=== PATIENT | female | born 1990 | race American Indian/Alaskan Native ===

== ENCOUNTER 2019-10-15 19:56 | Outpatient (CLI) | payer MEDICAID ==
[2019-10-15] MEDS ORDERED: MAGNESIUM SULFATE 4 GM/100 ML BAG IV ONE (21:23)
[2019-10-15] MEDS ORDERED: ACETAMINOPHEN 325 MG TAB PO PRN (21:24)
[2019-10-15] MEDS ORDERED: MAGNESIUM SULFATE 40GM/1000ML 40 GM/1,000 ML BAG IV SCH (22:00)
[2019-10-15] MEDS: LACTATED RINGERS 1,000 ML IV SCH (23:13)
[2019-10-15] MEDS: BETAMET ACET/BETAMET NA PH 6 MG/ML INJ 5 ML MDV IM SCH (23:42)
[2019-10-16] MEDS: ZOLPIDEM 5 MG TAB PO PRN (01:05)
[2019-10-16 04:06] LABS: Hematocrit 39.8 % (30.3-42.9); Hemoglobin 13.6 gm/dl (10.1-14.3); Mean Corpuscular HGB Conc 34 % (30-34); Mean Corpuscular Volume 95 fl (79-97); Platelet Count 315 K/mm3 (140-440); Red Cell Distribution Width 13.7 % (13.2-15.2)
--- NOTE | 2019-10-16 08:20 | History and Physical Report ---
History of Present Illness Date of examination: 10/16/19 Date of admission: 10/15/19 Chief complaint: Sent from [facility] for severe IUGR with absent end diastolic flow. History of present illness: Pt is a 28 yo at 31.0 weeks EGA who presents with severe IUGR (EFW 1%) and absent end diastolic flow per [facility] ultrasound yesterday. She has received minimal care with [facility] consultant dietitian, most recent visit was 06/25/19. She has a history of x1 for severe IUGR at 29 weeks. Past History Past Medical History: no pertinent history Past Surgical History: section Social history: no significant social history - Obstetrical History Expected Date of Delivery: 12/18/19 Actual Gestation: 31 Week(s) 0 Day(s) : 2 Para: 0 Hx # Term Pregnancies: 0 Number of Pregnancies: 1 Number of Living Children: 1 Medications and Allergies Allergies Allergy/AdvReac Type Severity Reaction Status Date / Time No Known Allergies Allergy Verified 10/15/19 21:30 Home Medications Medication Instructions Recorded Confirmed Last Taken Type No Known Home Medications [No 10/15/19 10/15/19 Unknown History Reported Home Medications] Active Meds: Active Medications Acetaminophen (Tylenol) 650 mg PO Q4H PRN PRN Reason: Pain, Mild (1-3) Betamethasone Acet/Betameth SodPhos (Celestone Soluspan) 12 mg IM Q24H HORACE Stop: 10/16/19 21:19 Last Admin: 10/15/19 23:42 Dose: 12 mg Documented by: Magnesium Sulfate (Magnesium Sulfate 40gm/1000ml) 40 gm in 1,000 mls @ 50 mls/hr IV DIRECT HORACE Last Admin: 10/15/19 23:45 Dose: 2 gm/hr, 50 mls/hr Documented by: Lactated Ringer's (Lactated Ringers) 1,000 mls @ 75 mls/hr IV DIRECT HORACE Last Admin: 10/15/19 23:13 Dose: 75 mls/hr Documented by: Zolpidem Tartrate (Ambien) 5 mg PO QHS PRN PRN Reason: Sleep Last Admin: 10/16/19 01:05 Dose: 5 mg Documented by: Review of Systems All systems: negative Cardiovascular: no chest pain Respiratory: no shortness of breath Gastrointestinal: no abdominal pain Genitourinary: no vaginal bleeding, no vaginal discharge, no leakage of fluid, no dysuria, no contractions - Vital Signs Vital signs: Vital Signs Pulse BP 82 130/80 10/15/19 20:29 10/15/19 20:29 Temp Pulse Resp BP Pulse Ox 98.4 F 113 H 18 123/77 98 10/15/19 20:45 10/16/19 08:12 10/15/19 20:45 10/16/19 07:42 10/16/19 08:12 - Physical Exam Lungs: Positive: Normal air movement Abdomen: Positive: soft Uterus: Positive: enlarged (gravid) - Obstetrical FHR: category 1 Uterine Contraction Pattern: Absent Results Result Diagrams: 10/16/19 02:00 Abnormal lab results 10/16/19 Range/Units 02:00 WBC 12.3 H (4.5-11.0) K/mm3 MCH 33 H (28-32) pg All other labs normal. Assessment and Plan A: Severe IUGR Absent end diastolic flow Scant care Previous c/s x1 P: NICU consult MFM consult MgSO for neuroprotection Betamethasone x2 Repeat Doppler studies and BPP at 1500 Continuous EFM
[2019-10-16] MEDS: LACTATED RINGERS 1,000 ML IV SCH (11:59)
--- NOTE | 2019-10-16 16:31 | Progress Note ---
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 Repeat BPP/doppler MWP Continuous monitoring NICU consult Deliver for Cat 3 tracing Contact oncall physician for concerns Subjective - Subjective Date of service: 10/16/19 Principal diagnosis: IUGR w/abnoraml dopplers Patient reports: movement normal Objective - Vital Signs Vital Signs: Vital Signs - 12hr 10/16/19 10/16/19 10/16/19 04:24 04:29 04:34 Temperature Pulse Rate 94 H 92 H 82 Respiratory Rate Blood Pressure Blood Pressure [Left] O2 Sat by Pulse 100 98 99 Oximetry 10/16/19 10/16/19 10/16/19 04:39 04:44 04:49 Temperature Pulse Rate 84 90 90 Respiratory Rate Blood Pressure Blood Pressure [Left] O2 Sat by Pulse 98 98 98 Oximetry 10/16/19 10/16/19 10/16/19 04:54 04:59 05:04 Temperature Pulse Rate 71 83 78 Respiratory Rate Blood Pressure Blood Pressure [Left] O2 Sat by Pulse 98 98 98 Oximetry 10/16/19 10/16/19 10/16/19 05:09 05:14 05:19 Temperature Pulse Rate 74 73 82 Respiratory Rate Blood Pressure Blood Pressure [Left] O2 Sat by Pulse 98 98 98 Oximetry 10/16/19 10/16/19 10/16/19 05:24 05:25 05:29 Temperature Pulse Rate 88 88 80 Respiratory Rate Blood Pressure 121/72 Blood Pressure [Left] O2 Sat by Pulse 99 99 Oximetry 10/16/19 10/16/19 10/16/19 05:34 05:39 05:43 Temperature Pulse Rate 91 H 86 80 Respiratory Rate Blood Pressure 128/81 Blood Pressure [Left] O2 Sat by Pulse 99 99 Oximetry 10/16/19 10/16/19 10/16/19 05:44 05:49 05:54 Temperature Pulse Rate 86 98 H 89 Respiratory Rate Blood Pressure Blood Pressure [Left] O2 Sat by Pulse 99 99 99 Oximetry 10/16/19 10/16/19 10/16/19 05:59 06:04 06:09 Temperature Pulse Rate 110 H 90 85 Respiratory Rate Blood Pressure Blood Pressure [Left] O2 Sat by Pulse 100 99 99 Oximetry 10/16/19 10/16/19 10/16/19 06:14 06:19 06:24 Temperature Pulse Rate 77 80 73 Respiratory Rate Blood Pressure Blood Pressure [Left] O2 Sat by Pulse 99 98 99 Oximetry 10/16/19 10/16/19 10/16/19 06:29 06:34 06:39 Temperature Pulse Rate 84 80 81 Respiratory Rate Blood Pressure Blood Pressure [Left] O2 Sat by Pulse 98 98 98 Oximetry 10/16/19 10/16/19 10/16/19 06:42 06:44 06:49 Temperature Pulse Rate 81 78 87 Respiratory Rate Blood Pressure 111/57 Blood Pressure [Left] O2 Sat by Pulse 98 97 Oximetry 10/16/19 10/16/19 10/16/19 06:54 06:59 07:04 Temperature Pulse Rate 84 83 88 Respiratory Rate Blood Pressure Blood Pressure [Left] O2 Sat by Pulse 97 97 97 Oximetry 10/16/19 10/16/19 10/16/19 07:20 07:22 07:27 Temperature 97.2 F L Pulse Rate 92 H 93 H 104 H Respiratory 16 Rate Blood Pressure 134/83 Blood Pressure 134/83 [Left] O2 Sat by Pulse 96 99 Oximetry 10/16/19 10/16/19 10/16/19 07:32 07:37 07:42 Temperature Pulse Rate 98 H 103 H 97 H Respiratory Rate Blood Pressure 123/77 Blood Pressure [Left] O2 Sat by Pulse 99 99 98 Oximetry 10/16/19 10/16/19 10/16/19 07:47 07:52 07:57 Temperature Pulse Rate 97 H 98 H 107 H Respiratory Rate Blood Pressure Blood Pressure [Left] O2 Sat by Pulse 99 99 99 Oximetry 10/16/19 10/16/19 10/16/19 08:02 08:07 08:12 Temperature Pulse Rate 104 H 100 H 113 H Respiratory Rate Blood Pressure Blood Pressure [Left] O2 Sat by Pulse 99 99 98 Oximetry 10/16/19 10/16/19 10/16/19 08:17 08:22 08:27 Temperature Pulse Rate 103 H 104 H 102 H Respiratory Rate Blood Pressure Blood Pressure [Left] O2 Sat by Pulse 99 99 98 Oximetry 10/16/19 10/16/19 10/16/19 08:33 08:38 08:45 Temperature Pulse Rate 100 H 99 H 105 H Respiratory Rate Blood Pressure 140/80 Blood Pressure [Left] O2 Sat by Pulse 98 99 Oximetry 10/16/19 10/16/19 10/16/19 14:51 14:56 15:01 Temperature Pulse Rate 82 89 83 Respiratory Rate Blood Pressure 140/82 Blood Pressure [Left] O2 Sat by Pulse 100 100 98 Oximetry 10/16/19 10/16/19 10/16/19 15:06 15:11 15:13 Temperature Pulse Rate 95 H 61 96 H Respiratory Rate Blood Pressure Blood Pressure [Left] O2 Sat by Pulse 98 82 L 100 Oximetry 10/16/19 10/16/19 10/16/19 15:18 15:23 15:28 Temperature Pulse Rate 87 104 H 101 H Respiratory Rate Blood Pressure Blood Pressure [Left] O2 Sat by Pulse 99 99 99 Oximetry 10/16/19 10/16/19 10/16/19 15:33 15:38 15:43 Temperature Pulse Rate 94 H 96 H 94 H Respiratory Rate Blood Pressure Blood Pressure [Left] O2 Sat by Pulse 100 100 100 Oximetry 10/16/19 10/16/19 10/16/19 15:48 15:53 15:58 Temperature Pulse Rate 94 H 89 119 H Respiratory Rate Blood Pressure Blood Pressure [Left] O2 Sat by Pulse 99 98 97 Oximetry 10/16/19 10/16/19 10/16/19 16:03 16:08 16:13 Temperature Pulse Rate 109 H 97 H 98 H Respiratory Rate Blood Pressure Blood Pressure [Left] O2 Sat by Pulse 99 100 99 Oximetry 10/16/19 16:18 Temperature Pulse Rate 95 H Respiratory Rate Blood Pressure Blood Pressure [Left] O2 Sat by Pulse 99 Oximetry - Exam Breasts: deferred Cardiovascular: Regular rate, Normal S1 Lungs: Normal air movement Abdomen: Present: normal appearance - Labs Labs: Abnormal Labs 10/16/19 10/16/19 10/16/19 02:00 09:10 12:50 WBC 12.3 H MCH 33 H Magnesium 5.50 H 5.80 H Laboratory Results - last 24 hr 10/16/19 10/16/19 10/16/19 02:00 09:10 09:10 WBC 12.3 H RBC 4.20 Hgb 13.6 Hct 39.8 MCV 95 MCH 33 H MCHC 34 RDW 13.7 Plt Count 315 Magnesium 5.50 H Blood Type B POSITIVE Antibody Screen Negative 10/16/19 12:50 WBC RBC Hgb Hct MCV MCH MCHC RDW Plt Count Magnesium 5.80 H Blood Type Antibody Screen
--- NOTE | 2019-10-16 18:16 | Ultrasound Report ---
Umbilical arterial Ultrasound Biophysical profile HISTORY: Severe IUGR hx absent end diastolic flow. TECHNIQUE: Grayscale and color Doppler imaging performed. COMPARISON: None FINDINGS: On biophysical profile, the fetus received a score of 2/2 for breathing, movement, tone, an d HILARY. Total score was 8/8. 3 segments of the umbilical cord were evaluated. The average systolic to diastolic ratio within these loops was 3.7 which is within normal limits. Normal waveform identified. Persistent flow. The resist urbano index average was 0.7 which is within normal limits with normal waveform and persistent blood chan w. IMPRESSION: 1. Normal BPP. 2. Normal umbilical arterial evaluation. Signer Name: Rhett Escobar MD Signed: 10/16/2019 6:12 PM Workstation Name: [id number]
[2019-10-17] MEDS: BETAMET ACET/BETAMET NA PH 6 MG/ML INJ 5 ML MDV IM SCH (00:02)
[2019-10-17] MEDS: LACTATED RINGERS 1,000 ML IV SCH (01:43)
--- NOTE | 2019-10-17 09:09 | Progress Note ---
Assessment and Plan A/P IUP 30 weith with IUGR no end diastolic flow s/p bmz and mag seen by [facility] and MFM await recommnedations from high risk on disposition Subjective - Subjective Date of service: 10/17/19 Principal diagnosis: IUGR w/abnoraml dopplers Patient reports: movement normal, no loss of fluid, no vaginal bleeding, no contractions Objective - Vital Signs Vital Signs: Vital Signs - 12hr 10/16/19 10/16/19 10/16/19 21:09 21:14 21:19 Temperature Pulse Rate 89 92 H 93 H Respiratory Rate Blood Pressure O2 Sat by Pulse 100 99 100 Oximetry 10/16/19 10/16/19 10/16/19 21:24 21:29 21:34 Temperature Pulse Rate 86 88 89 Respiratory Rate Blood Pressure O2 Sat by Pulse 99 100 99 Oximetry 10/16/19 10/16/19 10/16/19 21:39 21:42 21:44 Temperature Pulse Rate 92 H 99 H 94 H Respiratory Rate Blood Pressure 133/74 O2 Sat by Pulse 100 100 Oximetry 10/16/19 10/16/19 10/16/19 21:49 21:54 21:59 Temperature Pulse Rate 114 H 118 H 120 H Respiratory Rate Blood Pressure O2 Sat by Pulse 100 100 99 Oximetry 10/16/19 10/16/19 10/16/19 22:20 22:25 22:29 Temperature Pulse Rate 127 H 113 H 156 H Respiratory Rate Blood Pressure O2 Sat by Pulse 98 99 99 Oximetry 10/16/19 10/16/19 10/16/19 22:35 22:40 22:43 Temperature Pulse Rate 129 H 133 H 127 H Respiratory Rate Blood Pressure 155/81 O2 Sat by Pulse 98 98 Oximetry 10/16/19 10/16/19 10/16/19 22:45 22:53 22:58 Temperature Pulse Rate 133 H 122 H 131 H Respiratory Rate Blood Pressure O2 Sat by Pulse 98 98 98 Oximetry 10/16/19 10/16/19 10/16/19 23:03 23:08 23:13 Temperature Pulse Rate 106 H 116 H 107 H Respiratory Rate Blood Pressure O2 Sat by Pulse 97 98 98 Oximetry 10/16/19 10/16/19 10/16/19 23:18 23:23 23:28 Temperature Pulse Rate 103 H 102 H 88 Respiratory Rate Blood Pressure O2 Sat by Pulse 98 99 98 Oximetry 10/16/19 10/16/19 10/16/19 23:33 23:38 23:43 Temperature Pulse Rate 89 89 95 H Respiratory Rate Blood Pressure O2 Sat by Pulse 99 98 95 Oximetry 10/16/19 10/16/19 10/16/19 23:45 23:48 23:53 Temperature Pulse Rate 92 H 97 H 91 H Respiratory Rate Blood Pressure 140/86 O2 Sat by Pulse 98 99 Oximetry 10/16/19 10/17/19 10/17/19 23:58 00:00 00:03 Temperature 98.1 F Pulse Rate 90 82 Respiratory Rate Blood Pressure O2 Sat by Pulse 98 99 Oximetry 10/17/19 10/17/19 10/17/19 00:08 00:12 00:18 Temperature Pulse Rate 80 80 86 Respiratory Rate Blood Pressure O2 Sat by Pulse 99 98 99 Oximetry 10/17/19 10/17/19 10/17/19 00:23 00:28 00:33 Temperature Pulse Rate 86 89 97 H Respiratory Rate Blood Pressure O2 Sat by Pulse 99 100 100 Oximetry 10/17/19 10/17/19 10/17/19 00:38 00:43 00:44 Temperature Pulse Rate 94 H 92 H 90 Respiratory Rate Blood Pressure 124/74 O2 Sat by Pulse 97 98 92 Oximetry 10/17/19 10/17/19 10/17/19 00:48 00:53 00:58 Temperature Pulse Rate 92 H 89 88 Respiratory Rate Blood Pressure O2 Sat by Pulse 99 99 100 Oximetry 10/17/19 10/17/19 10/17/19 01:03 01:08 01:13 Temperature Pulse Rate 84 86 83 Respiratory Rate Blood Pressure O2 Sat by Pulse 98 98 99 Oximetry 10/17/19 10/17/19 10/17/19 01:18 01:23 01:28 Temperature Pulse Rate 86 86 86 Respiratory Rate Blood Pressure O2 Sat by Pulse 98 98 99 Oximetry 10/17/19 10/17/19 10/17/19 01:33 01:38 01:43 Temperature Pulse Rate 97 H 91 H 100 H Respiratory Rate Blood Pressure 133/92 O2 Sat by Pulse 98 96 92 Oximetry 10/17/19 10/17/19 10/17/19 01:48 02:42 03:42 Temperature Pulse Rate 89 85 84 Respiratory Rate Blood Pressure 115/62 120/68 O2 Sat by Pulse 99 Oximetry 10/17/19 10/17/19 10/17/19 06:10 06:12 06:14 Temperature 98.0 F Pulse Rate 87 98 H Respiratory 180 H Rate Blood Pressure 126/65 O2 Sat by Pulse 99 99 Oximetry 10/17/19 10/17/19 10/17/19 06:19 06:24 06:29 Temperature Pulse Rate 105 H 89 89 Respiratory Rate Blood Pressure O2 Sat by Pulse 99 99 100 Oximetry 10/17/19 10/17/19 10/17/19 06:34 06:39 06:42 Temperature Pulse Rate 96 H 91 H 85 Respiratory Rate Blood Pressure 133/78 O2 Sat by Pulse 100 100 Oximetry 10/17/19 10/17/19 10/17/19 06:44 06:49 06:54 Temperature Pulse Rate 85 104 H 87 Respiratory Rate Blood Pressure O2 Sat by Pulse 100 100 99 Oximetry 10/17/19 10/17/19 10/17/19 06:59 07:04 07:09 Temperature Pulse Rate 90 97 H 107 H Respiratory Rate Blood Pressure O2 Sat by Pulse 99 99 99 Oximetry 10/17/19 10/17/19 10/17/19 07:14 07:19 07:24 Temperature Pulse Rate 73 87 75 Respiratory Rate Blood Pressure O2 Sat by Pulse 98 97 100 Oximetry - Exam Breasts: deferred Cardiovascular: Regular rate, Normal S1 Lungs: Clear to auscultation, Normal air movement Abdomen: Present: normal appearance, soft, normal bowel sounds. Absent: distention, tenderness, guarding Vulva: both: normal Uterus: Present: normal, firm. Absent: bogginess, tenderness FHR: category 1 - Labs Labs: Abnormal Labs 10/16/19 10/16/19 10/16/19 02:00 09:10 12:50 WBC 12.3 H MCH 33 H Magnesium 5.50 H 5.80 H 10/16/19 10/17/19 10/17/19 18:53 00:28 06:05 WBC MCH Magnesium 4.80 H 4.40 H 3.60 H Laboratory Results - last 24 hr 10/16/19 10/16/19 10/16/19 09:10 09:10 12:50 Magnesium 5.50 H 5.80 H Blood Type B POSITIVE Antibody Screen Negative 10/16/19 10/17/19 10/17/19 18:53 00:28 06:05 Magnesium 4.80 H 4.40 H 3.60 H Blood Type Antibody Screen
[2019-10-17] MEDS ORDERED: BETAMET ACET/BETAMET NA PH 6 MG/ML INJ 5 ML MDV IM ONE (10:00)
--- NOTE | 2019-10-17 10:48 | Ultrasound Report ---
ULTRASOUND OBSTETRIC LIMITED ULTRASOUND BIOPHYSICAL PROFILE INDICATION / CLINICAL INFORMATION: Absent Doppler. COMPARISON: OB ultrasound from 10/16/2019. FINDINGS: BREATHING MOVEMENT = 2 GROSS BODY MOVEMENT = 2 TONE = 2 QUALITATIVE AMNIOTIC FLUID VOLUME = 2 TOTAL BIOPHYSICAL SCORE = 8/8 PRESENTATION: Cephalic. HEART RATE (beats per minute): 128 ADDITIONAL FINDINGS: 3 segments of the umbilical cord were evaluated. The average systolic to diastol ic ratio within these loops was 4.42. A normal waveform is identified. There is persistent flow. The resistive index average is 0.77, which is normal, with normal waveform and persistent blood flow. IMPRESSION: 1. Biophysical Score = 8/8 2. Slightly elevated average systolic to diastolic ratio of the umbilical artery of 4.42. Otherwise u nremarkable umbilical arterial evaluation. Signer Name: Tj Poon MD Signed: 10/17/2019 10:44 AM Workstation Name: [id number]
--- NOTE | 2019-10-17 11:28 | Progress Note ---
Assessment and Plan Assessments: SIUP @ 31.1 weeks Severe IUGR by most recent [facility] with EFW @ 1% 10/15/2019 [facility] abnormal doppler : AEDF 10/15/2019 [facility] normal MCA doppler 10/16/2019 [facility] Normal umbilical dopper and BPP of 88 10/17/2019 [facility] Elevated umbilical doppler 10/17/2019 [facility] Reassuring BPP of 05/16 Previous c/section @ 29 week Severe IUGR with abnormal dopplers Previously Declined Amnio - States OB obtained NIPT and "neg boy" - Please confirm S/P BMZ for FLM S/P MgSO4 for neuroprotection Noncompliant patient - had NOT seen Ob since 06/2019 - had NOT obtained previously requested labs Plan: Remain in patient . 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 Subjective - Subjective Principal diagnosis: IUGR w/abnoraml dopplers Patient reports: movement normal, no new complaints, no loss of fluid, no vaginal bleeding, no contractions Objective - Vital Signs Vital Signs: Vital Signs - 12hr 10/16/19 10/16/19 10/16/19 23:18 23:23 23:28 Temperature Pulse Rate 103 H 102 H 88 Respiratory Rate Blood Pressure O2 Sat by Pulse 98 99 98 Oximetry 10/16/19 10/16/19 10/16/19 23:33 23:38 23:43 Temperature Pulse Rate 89 89 95 H Respiratory Rate Blood Pressure O2 Sat by Pulse 99 98 95 Oximetry 10/16/19 10/16/19 10/16/19 23:45 23:48 23:53 Temperature Pulse Rate 92 H 97 H 91 H Respiratory Rate Blood Pressure 140/86 O2 Sat by Pulse 98 99 Oximetry 10/16/19 10/17/19 10/17/19 23:58 00:00 00:03 Temperature 98.1 F Pulse Rate 90 82 Respiratory Rate Blood Pressure O2 Sat by Pulse 98 99 Oximetry 10/17/19 10/17/19 10/17/19 00:08 00:12 00:18 Temperature Pulse Rate 80 80 86 Respiratory Rate Blood Pressure O2 Sat by Pulse 99 98 99 Oximetry 10/17/19 10/17/19 10/17/19 00:23 00:28 00:33 Temperature Pulse Rate 86 89 97 H Respiratory Rate Blood Pressure O2 Sat by Pulse 99 100 100 Oximetry 10/17/19 10/17/19 10/17/19 00:38 00:43 00:44 Temperature Pulse Rate 94 H 92 H 90 Respiratory Rate Blood Pressure 124/74 O2 Sat by Pulse 97 98 92 Oximetry 10/17/19 10/17/19 10/17/19 00:48 00:53 00:58 Temperature Pulse Rate 92 H 89 88 Respiratory Rate Blood Pressure O2 Sat by Pulse 99 99 100 Oximetry 10/17/19 10/17/19 10/17/19 01:03 01:08 01:13 Temperature Pulse Rate 84 86 83 Respiratory Rate Blood Pressure O2 Sat by Pulse 98 98 99 Oximetry 10/17/19 10/17/19 10/17/19 01:18 01:23 01:28 Temperature Pulse Rate 86 86 86 Respiratory Rate Blood Pressure O2 Sat by Pulse 98 98 99 Oximetry 10/17/19 10/17/19 10/17/19 01:33 01:38 01:43 Temperature Pulse Rate 97 H 91 H 100 H Respiratory Rate Blood Pressure 133/92 O2 Sat by Pulse 98 96 92 Oximetry 10/17/19 10/17/19 10/17/19 01:48 02:42 03:42 Temperature Pulse Rate 89 85 84 Respiratory Rate Blood Pressure 115/62 120/68 O2 Sat by Pulse 99 Oximetry 10/17/19 10/17/19 10/17/19 06:10 06:12 06:14 Temperature 98.0 F Pulse Rate 87 98 H Respiratory 180 H Rate Blood Pressure 126/65 O2 Sat by Pulse 99 99 Oximetry 10/17/19 10/17/19 10/17/19 06:19 06:24 06:29 Temperature Pulse Rate 105 H 89 89 Respiratory Rate Blood Pressure O2 Sat by Pulse 99 99 100 Oximetry 10/17/19 10/17/19 10/17/19 06:34 06:39 06:42 Temperature Pulse Rate 96 H 91 H 85 Respiratory Rate Blood Pressure 133/78 O2 Sat by Pulse 100 100 Oximetry 10/17/19 10/17/19 10/17/19 06:44 06:49 06:54 Temperature Pulse Rate 85 104 H 87 Respiratory Rate Blood Pressure O2 Sat by Pulse 100 100 99 Oximetry 10/17/19 10/17/19 10/17/19 06:59 07:04 07:09 Temperature Pulse Rate 90 97 H 107 H Respiratory Rate Blood Pressure O2 Sat by Pulse 99 99 99 Oximetry 10/17/19 10/17/19 10/17/19 07:14 07:19 07:24 Temperature Pulse Rate 73 87 75 Respiratory Rate Blood Pressure O2 Sat by Pulse 98 97 100 Oximetry - Exam Cardiovascular: Regular rate Lungs: Normal air movement Abdomen: Absent: tenderness, guarding Uterus: Present: other (gravid). Absent: tenderness FHR: other (During consult patient was not on EFM . RN reports Cat 1 prior tracing) Uterine Contraction Monitor Mode: Palpation (no contractions palpable) Uterine Contraction Pattern: Absent Extremities: other (no edema) Deep Tendon Reflex Grade: Normal +2 - Labs Labs: Abnormal Labs 10/16/19 10/16/19 10/16/19 02:00 09:10 12:50 WBC 12.3 H MCH 33 H Magnesium 5.50 H 5.80 H 10/16/19 10/17/19 10/17/19 18:53 00:28 06:05 WBC MCH Magnesium 4.80 H 4.40 H 3.60 H Laboratory Results - last 24 hr 10/16/19 10/16/19 10/17/19 12:50 18:53 00:28 Magnesium 5.80 H 4.80 H 4.40 H 10/17/19 06:05 Magnesium 3.60 H - Results US- obstetric: pending (reviewed preliminary report. Pleasse see chartfor full report)
[2019-10-17] MEDS: ZOLPIDEM 5 MG TAB PO PRN (23:10)
[2019-10-17] MEDS ORDERED: ZOLPIDEM 5 MG TAB PO PRN (23:20)
[2019-10-18] MEDS: LACTATED RINGERS 1,000 ML IV SCH (03:53)
--- NOTE | 2019-10-18 06:05 | Consultation ---
Consult Note - Parent Education I met with parent(s) and discussed the following:: Need for NICU admission, Poss ible need for intubation and surfactant or other resp support, Temperature regulation, Head ultrasounds to evaluate IVH, Eye exams for ROP screening, Possible need for IV fluids/TPN and IV antibiotics, Possible need for umbilical lines, Importance of providing breast milk & encouraged pumping aft delivery, Donor breast milk if baby meets criteria after , Slow feeding advancement and monitoring of tolerance. NG/OG feeds, Need to monitor for jaundice, Data for survival & survival without significant co-morbidities Parent(s) demonstrated understanding of all the information:: Yes Assessment and Plan - Assessment Gestation:: 31 (10/15) Estimated Weight: N/A Baby's gender: Male Baby's name: Aaron Additional Comment: 10/15 weeker, severe IUGR (EFW 1%) and AEDF with minimal PNC. H/O CS x1 severe IUGR at 29weeks who is now 4YO. - Plan Plan: Agree with Mag & steroids (mother rec'd) Will attend delivery Please call NICU with questions
--- NOTE | 2019-10-18 10:13 | Ultrasound Report ---
ULTRASOUND BIOPHYSICAL PROFILE INDICATION: IUGR, absent end diastolic flow, well being. COMPARISON: None available. FINDINGS: heart rate is 131 beats per minute. breathing movement = 2 Gross body movement = 2 tone = 2 Qualitative amniotic fluid volume = 2 IMPRESSION: biophysical profile = 05/16 Signer Name: Stoney Chopra Jr, MD Signed: 10/18/2019 10:09 AM Workstation Name: [id number]
--- NOTE | 2019-10-18 10:16 | Ultrasound Report ---
OB ULTRASOUND >= 14 WEEKS FETUS INDICATION: IUGR, Absent end flow COMPARISON: None FINDINGS: A single gestation intrauterine is present with cephalic presentation. The placenta is post erior, left lateral, grade 1 and free of the cervical os. heart tones measure 132 bpm. Amniotic fluid volume is normal with a fluid index of 14.7. anatomical survey was not performed. Biparietal diameter is 6.9 cm which equals 27 weeks 5 days. Head circumference is 26.2 cm which equals 28 weeks 3 days. Abdominal circumference is 21.2 cm which equals 25 weeks 5 days. Femur length is 5.4 cm which equals 28 weeks 4 days. Overall estimated sonographic age is 27 weeks 4 days. HC/AC ratio: 1.23 Cephalic index: 76.3 Estimated weight 1029 g IMPRESSION: Viable single intrauterine as described Signer Name: Stoney Chopra Jr, MD Signed: 10/18/2019 10:11 AM Workstation Name: [id number]
--- NOTE | 2019-10-18 10:19 | Ultrasound Report ---
ULTRASOUND OB VELOCIMETRY UMBILICAL ARTERY HISTORY: Intrauterine growth restriction, absent end-diastolic flow TECHNIQUE: Transabdominal imaging with color and spectral Doppler interrogation. COMPARISON: 10/17/2019 FINDINGS: 3 segments of the umbilical cord were evaluated. Spectral Doppler waveforms are normal and persistent . No evidence for loss of end-diastolic flow. Heart rate measures 129 bpm. Average resistive index me asures 0.73. S/D ratio average measures 3.74. Signer Name: Stoney Chopra Jr, MD Signed: 10/18/2019 10:14 AM Workstation Name: [id number]
--- NOTE | 2019-10-18 13:19 | Progress Note ---
Assessment and Plan A- IUP 31.2 weeks (ELSY 12/18/19 ) Severe IUGR with abnormal doppler studies Improvements in umbilical doppler studies today( 10/18/19)- 3.78, 3.86, 3.57 BPP 05/16 ( 10/18/19) EFW 1029g (10/18/19) Previous studies: 10/15/2019 [facility] abnormal doppler : AEDF 10/15/2019 [facility] normal MCA doppler 10/16/2019 [facility] Normal umbilical dopper and BPP of 05/1610/17/2019 [facility] Elevated umbilical doppler 10/17/2019 [facility] Reassuring BPP of 05/16 Pt history of c/section @ 29 weeks for Severe IUGR with abnormal dopplers Previously Declined Amnio - States OB obtained NIPT and "neg boy" - S/P Betamethasome x 2 and Magnesium Sulfate Noncompliant patient - had NOT seen Ob since 06/2019, had NOT obtained previously requested labs I discussed today's findings with Dr. Ashby today. Recommendations made for outpatient management with [facility] three times weekly secondary to severe IUGR. P: -Pt ok to be discharged with follow up 3 times weekly outpatient with [facility] ( Monday, Monday, and Monday.) With abnormal dopplers/AEDF, pt to be admitted again for evaluation and possible delivery. -Please confirm IUGR labs- TORCH panel ( IGG/IGM), Parvovirus (IGG/IGM), Antiphospholipid panel, HgbA1c, and TSH -Continuous monitoring until pt discharged -Please confirm normal NIPT results For additional questions or concerns, please contact [facility] operational test mechanic MD ( Dr. Ashby). Thank you. Subjective - Subjective Date of service: 10/18/19 Principal diagnosis: IUGR w/abnoraml dopplers Patient reports: movement normal, no new complaints, no loss of fluid, no vaginal bleeding, no contractions Objective - Vital Signs Vital Signs: Vital Signs - 12hr 10/18/19 10/18/19 10/18/19 01:45 01:54 04:08 Temperature 97.8 F Pulse Rate 104 H 75 Respiratory 18 Rate Blood Pressure 128/79 121/76 Blood Pressure [Left] O2 Sat by Pulse Oximetry 10/18/19 10/18/19 10/18/19 07:57 07:58 13:05 Temperature 98.2 F 98.6 F Pulse Rate 70 73 Respiratory 16 20 Rate Blood Pressure 119/82 Blood Pressure 119/82 [Left] O2 Sat by Pulse 100 Oximetry - Exam Breasts: deferred Cardiovascular: Regular rate, Normal S1, Normal S2 Lungs: Clear to auscultation, Normal air movement Abdomen: Present: normal appearance, soft (gravid) - Labs Labs: Abnormal Labs 10/16/19 10/16/19 10/16/19 02:00 09:10 12:50 WBC 12.3 H MCH 33 H Magnesium 5.50 H 5.80 H 10/16/19 10/17/19 10/17/19 18:53 00:28 06:05 WBC MCH Magnesium 4.80 H 4.40 H 3.60 H
--- NOTE | 2019-10-18 14:32 | Progress Note ---
Assessment and Plan IUP at 31w2d IUGR Admitted for absent end diastolic flow, now with normal dopplers MFM recommendation for discharge home with TID follow up in office. kick counts Subjective - Subjective Date of service: 10/18/19 Principal diagnosis: IUGR w/abnoraml dopplers Interval history: Pt without complaints. s/p BPP today 05/16 and normal dopplers. MFM recommendation today for discharge home with TID follow up in office. Patient reports: movement normal, no new complaints, no loss of fluid, no vaginal bleeding, no contractions Objective - Vital Signs Vital Signs: Vital Signs - 12hr 10/18/19 10/18/19 10/18/19 04:08 07:57 07:58 Temperature 98.2 F Pulse Rate 75 70 73 Respiratory 16 Rate Blood Pressure 121/76 119/82 Blood Pressure 119/82 [Left] O2 Sat by Pulse 100 Oximetry 10/18/19 13:05 Temperature 98.6 F Pulse Rate Respiratory 20 Rate Blood Pressure Blood Pressure [Left] O2 Sat by Pulse Oximetry - Exam Breasts: deferred Cardiovascular: Regular rate Lungs: Clear to auscultation Abdomen: Present: soft (gravid ) Uterus: Present: normal (gravid ) FHR: auscultation normal Uterine Contraction Pattern: Absent Uterine Tone Measurement Phase: Resting Extremities: normal - Labs Labs: Abnormal Labs 10/16/19 10/16/19 10/16/19 02:00 09:10 12:50 WBC 12.3 H MCH 33 H Magnesium 5.50 H 5.80 H 10/16/19 10/17/19 10/17/19 18:53 00:28 06:05 WBC [facility] Magnesium 4.80 H 4.40 H 3.60 H
--- NOTE | 2019-10-18 14:35 | Discharge Summary ---
Providers - Providers Date of Admission: 10/16/19 Date of discharge: 10/18/19 Attending physician: LEON MARTI 10/15/19 21:34 Consult to Physician [CONS] Routine Comment: Consulting Provider: AUREA BLEDSOE I Physician Instructions: Reason For Exam: severe IUGR and abnormal Doppler studies 10/17/19 22:46 Consult to Physician [CONS] Routine Comment: NICU Consulting Provider: ANGELLA MURGUIA Physician Instructions: Reason For Exam: Anticipated delivery Primary care physician: LEON MARTI Hospitalization Reason for admission: other (Absent end diastolic flow on umbilical dopplers ) Other procedures: none complications: none Hospital course: Pt admitted for absent end diastolic flow on umbilical artery dopplers and IUGR. She had multiple biophysical profiles and doppler studies while hospitalized. By HD#2, she had normal doppler studies and a biophysical profile of 8/8. She was cleared by [facility] for discharge and will follow up TID in the office. She has been given strict movement precautions. Condition at discharge: Stable Disposition: GA-01 TO HOME OR SELFCARE - Discharge Diagnoses (1) IUGR (intrauterine growth restriction) Status: Acute (2) Previous section Status: Acute Plan - Provider Discharge Summary Activity: routine Diet: routine Instructions: routine Additional instructions: [] Smoking cessation referral if applicable(refer to patient education folder for contact #) [] Refer to [facility] Booklet Call your doctor immediately for: * Fever > 100.5 * Heavy vaginal bleeding ( >1 pad per hour) * Severe persistent headache * Shortness of breath * Reddened, hot, painful area to leg or breast * Drainage or odor from incision. * Keep incision clean and dry at all times and follow doctor's instructions regarding bathing/showering - Follow up plan Follow up: LEON MARTI MD [Primary Care Provider] - 10/21/19 (Please schedule an appt with your provider ) PHOEBE MAGANA MD [Staff Physician] - 10/21/19 (Please schedule an appt with your high risk management intern )
[2019-10-18 15:11] VITALS: BP 130/81
== END 2019-10-18 15:30 | disposition home or self-care (01) ==
LOC: TRG 19:56 → LD 20:00 → TRG 10-18 15:30
PROVIDERS: ATTEND Obstetrics & Gynecology
DX: O36.5930 Maternal care for other known or suspected poor fetal growth, third trimester, not applicable or unspecified (principal); Z3A.31 31 weeks gestation of pregnancy
CPT/HCPCS: 36415; 76816; 76819; 76820; 83735; 85027; 86850; 86900; 86901; J0702; J3475; J7120; 96360; 96361; 96365; 96366; 96372

== ENCOUNTER 2019-11-06 13:05 | Inpatient (IN) | payer MEDICAID ==
--- NOTE | 2019-11-06 20:01 | Anesthesia Consultation ---
Anesthesia Consult and Med Hx Date of service: 11/06/19 - Airway Anesthetic Teeth Evaluation: Good ROM Head & Neck: Adequate Mental/Hyoid Distance: Adequate Mallampati Class: Class III Intubation Access Assessment: Probably Good - Pulmonary Exam CTA: Yes - Cardiac Exam Cardiac Exam: RRR - Pre-Operative Health Status ASA Pre-Surgery Classification: ASA3 Proposed Anesthetic Plan: Spinal - Pre-Anesthesia Comment Pre-Anesthesia Comments: c/section x 1, no anesthesia complications - Pulmonary Hx Smoking: No Hx Asthma: No Hx Respiratory Symptoms: No SOB: No COPD: No Home Oxygen Therapy: No Hx Pneumonia: No Hx Sleep Apnea: No - Cardiovascular System Hx Hypertension: No Hx Coronary Artery Disease: No Hx Heart Attack/AMI: No Hx Angina: No Hx Percutaneous Transluminal Coronary Angioplasty (PTCA): No Hx Cardia Arrhythmia: No Hx Pacemaker: No Hx Internal Defibrillator: No Hx Valvular Heart Disease: No Hx Heart Murmur: No Hx Peripheral Vascular Disease: No - Central Nervous System Hx Neuromuscular Disorder: No Hx Seizures: No CVA: No Hx Back Pain: No Hx Psychiatric Problems: No - Gastrointestinal Hx Ulcer: No Hx Gastroesophageal Reflux Disease: No - Endocrine Hx Renal Disease: No Hx End Stage Renal Disease: No Hx Cirrhosis: No Hx Liver Disease: No Hx Insulin Dependent Diabetes: No Hx Non-Insulin Dependent Diabetes: No Hx Thyroid Disease: No Hx Hypothyroidism: No Hx Hyperthyroidism: No - Hematic Hx Anemia: No Hx Sickle Cell Disease: No - Other Systems Hx Alcohol Use: No Hx Substance Use: No Hx Cancer: No Hx Obesity: Yes
--- NOTE | 2019-11-06 20:08 | Anesthesia Day of Surgery ---
Anesthesia Day of Surgery - Day of Surgery Patient Examined: Yes Patient H&P Reviewed: Yes Patient is NPO: No Beta Blockers: No Cardiac Clearance: No Pulmonary Clearance: No Franc's Test: N/A
--- NOTE | 2019-11-06 21:02 | Consultation ---
Consult Note - Parent Education I met with parent(s) and discussed the following:: Need for NICU admission, Poss ible need for intubation and surfactant or other resp support, Temperature regulation, Possible need for IV fluids/TPN and IV antibiotics, Possible need for umbilical lines, Importance of providing breast milk & encouraged pumping aft delivery, Donor breast milk if baby meets criteria after , Slow feeding advancement and monitoring of tolerance. NG/OG feeds, Need to monitor for jaundice, Data for survival & survival without significant co-morbidities Parent(s) demonstrated understanding of all the information:: Yes Assessment and Plan - Assessment Gestation:: 34 Estimated Weight: N/A Baby's gender: Male Baby's name: Aaron or Florentin Additional Comment: 29YO mother here for a schedule repeat CS of a IUGR 34 weeker. Rec's beta x2 and mag 2 weeks ago with previous hospitalization visit. H/O 29 weeker 4 years ago at [facility]. - Plan Plan: A Will attend delivery Please call NICU with questions
[2019-11-06] MEDS ORDERED: FAMOTIDINE 20 MG/2 ML INJ IV ONE (23:34)
[2019-11-06] MEDS ORDERED: BICITRA ORAL LIQD 30ML PO ONE (23:34)
[2019-11-06] MEDS ORDERED: OXYTOCIN 20 UNIT/1000ML DRIP 20 UNITS/1,000 ML BAG IV SCH (23:45)
[2019-11-06] MEDS ORDERED: LACTATED RINGERS 1,000 ML IV SCH (23:45)
[2019-11-07] LABS: Basophils # (Auto) 0.1 K/mm3 (0.0-0.1); Basophils % (Auto) 0.4 % (0.0-1.8); Eosinophils # (Auto) 0.1 K/mm3 (0.0-0.4); Eosinophils % (Auto) 0.6 % (0.0-4.3); Hematocrit 41.2 % (30.3-42.9); Hemoglobin 14.1 gm/dl (10.1-14.3); Lymphocytes # (Auto) 3.1 K/mm3 (1.2-5.4); Lymphocytes % (Auto) 26.4 % (13.4-35.0); Mean Corpuscular HGB Conc 34 % (30-34); Mean Corpuscular Volume 97 fl (79-97); Monocytes # (Auto) 0.7 K/mm3 (0.0-0.8); Monocytes % (Auto) 6.4 % (0.0-7.3); Platelet Count 273 K/mm3 (140-440); Red Blood Count 4.25 M/mm3 (3.65-5.03); Red Cell Distribution Width 13.9 % (13.2-15.2)
[2019-11-07] MEDS ORDERED: METOCLOPRAMIDE 10 MG/2 ML INJ IV ONE (05:30)
[2019-11-07] MEDS ORDERED: BICITRA ORAL LIQD 30ML ONE (05:46)
[2019-11-07] MEDS ORDERED: FAMOTIDINE 20 MG/2 ML INJ IV ONE (05:47)
[2019-11-07] MEDS ORDERED: ceFAZolin/Water 2 GM/20 ML 2 GM/20 ML SYRINGE IV ONE (05:47)
[2019-11-07] MEDS ORDERED: SODIUM CHLORIDE 0.9% IRR 1,500 ML BOTTLE IR ONE (06:39)
[2019-11-07] MEDS ORDERED: ceFAZolin/STERILE WATER 2 GM/20 ML SYRINGE IV ONE (06:39)
[2019-11-07] MEDS ORDERED: WATER FOR IRRIG STERILE 1,500 ML BOTTLE IR ONE (06:39)
[2019-11-07] MEDS ORDERED: OXYTOCIN 10 UNIT/1 ML INJ ONE ×2 (06:55→06:56)
[2019-11-07] MEDS ORDERED: DEXMEDETOMIDINE 200 MCG/2 ML VIAL IV ONE (06:56)
--- NOTE | 2019-11-07 07:38 | Procedure Note ---
OB Delivery Note - Delivery Date of Delivery: 11/07/19 Surgeon: AYLA BELTRAN Estimated blood loss: other (800 cc) - Section Preop diagnosis: repeat Postop diagnosis: same section procedure: section Disposition: PACU Complications: none Narrative: see op note - Infant A at 1 minute: 8 at 5 minutes: 9 Gender: Male (2 pounds 14 oz)
--- NOTE | 2019-11-07 07:43 | Operative Report ---
Operative Report Operative Report: DATE OF OPERATION: 11/07/19 PREOPERATIVE DIAGNOSES: 1. Prior section. 2. IUGR 3.Abnormal doppler recommneded delivery from [facility] 4. IUP 34 weeks POSTOPERATIVE DIAGNOSES: 1-4 ARISTEO OPERATION PERFORMED: Repeat low transverse . SURGEON: Leonila Alicea MD ANESTHESIA: Spinal. ESTIMATED BLOOD LOSS: 800 mL. FINDINGS: A viable female 2 pound 14oz . COMPLICATIONS: None. DISPOSITION: Stable. DESCRIPTION OF OPERATION: After informed consent was obtained, the patient was brought back to the operative suite where adequate spinal anesthesia was obtained. The patient was then placed in the dorsal supine position and prepped and draped in the sterile fashion. A repeat Pfannenstiel skin incision was made with a blade and carried down through the subcutaneous tissues to the fascia, which was extended in the transverse fascia with Madrid scissors. The fascial incision was then dissected off the rectus muscles both bluntly and sharply. The rectus muscle was in the midline. The peritoneum was entered bluntly. The peritoneal incision was then extended both superiorly and inferiorly with good visualization of the underlying bowel and bladder. The bladder blade was placed, and the vesicouterine fascia was incised to create a bladder flap in a low transverse position. This was developed digitally. A low transverse uterine incision was made with the blade and carried down through the layers of the uterus until membranes bulged through the incision. The uterine incision was then extended digitally. Hand was placed inside the pelvis, and the head was brought up out of the pelvis and delivered atraumatically with gentle fundal pressure. Prior to the head being delivered, actually through the skin, the sound of the baby starting to cry was noted. After the head was delivered, the mouth and nares were aggressively bulb suctioned. Remainder of the was delivered, and the was passed to the awaiting nursing staff for additional care. Cord was doubly clamped and cut and cord blood was obtained. The placenta was then manually extracted, and the uterus was exteriorized. The uterus was cleaned of remaining clot. The uterine incision was readily identified and closed in two layers, first one with running locking followed by second imbricating layer of 0 Vicryl. The vesicouterine fascia was then reapproximated with 2-0 Vicryl. The adnexa were within normal limits. The uterus was placed back inside the pelvis. Copious irrigation and inspection of the incision was satisfactory. The peritoneum was then closed with 2-0 Vicryl in a running fashion. The fascia was closed with 1 Vicryl from one angle to the next. Subcutaneous tissues were copiously irrigated, and final bleeders were cauterized. The incision was then reapproximated with surgical zandra in a standard fashion.
--- NOTE | 2019-11-07 07:45 | Post Anesthesia Evaluation ---
- Post Anesthesia Evaluation Patient Participated: Yes Airway Patent: Yes Stable Respiratory Function: Yes Nausea/Vomiting: No Temp > 96.8F: Yes Pain Manageable: Yes Adequeate Hydration: Yes Anesthesia Complications: No Block Receding Appropriately: Yes Patient on Ventilator: No
[2019-11-07] MEDS ORDERED: SIMETHICONE 80 MG CHEW TAB PO PRN (08:00)
[2019-11-07] MEDS ORDERED: ONDANSETRON 4 MG/2 ML INJ IV PRN (08:00)
[2019-11-07] MEDS ORDERED: ACETAMINOPHEN 325 MG TAB PO PRN (08:00)
[2019-11-07] MEDS ORDERED: PROMETHAZINE 25 MG RECT SUPP PR PRN (08:00)
[2019-11-07] MEDS ORDERED: D5W/LACTATED RINGERS 1,000 ML IV SCH (08:00)
[2019-11-07] MEDS ORDERED: WITCH HAZEL/ GLYCERIN PAD TP PRN (08:00)
[2019-11-07] MEDS ORDERED: NALOXONE 0.4 MG/1 ML INJ IV PRN (08:00)
[2019-11-07] MEDS ORDERED: KETOROLAC 30 MG/1 ML INJ IV PRN (08:00)
[2019-11-07] MEDS ORDERED: MORPHINE 2 MG/1 ML INJ IV PRN (08:00)
[2019-11-07] MEDS ORDERED: OXYTOCIN 20 UNIT/1000ML DRIP 20 UNITS/1,000 ML BAG IV SCH (08:00)
[2019-11-07] MEDS ORDERED: LANOLIN/ZINC/DIMETHICONE (LANSINOH) 7 GM TP PRN (08:00)
[2019-11-07] MEDS ORDERED: MORPHINE 4 MG/1 ML INJ IV PRN (08:00)
[2019-11-07] MEDS ORDERED: OXYTOCIN 20 UNIT/1000ML DRIP 20,000 MILLIUNITS/1,000 ML BAG IV ONE (09:12)
[2019-11-07] MEDS: KETOROLAC 30 MG/1 ML INJ IV PRN ×2 (09:53→21:36)
[2019-11-07] MEDS ORDERED: HYDROCORTISONE 25 MG RECTAL SUPP PR PRN (10:00)
[2019-11-07] MEDS: HYDROcodone/ACETAMINOPHEN 5-325 MG TAB PO PRN (16:10)
[2019-11-07 19:06] LABS: Hematocrit 37.8 % (30.3-42.9); Hemoglobin 12.8 gm/dl (10.1-14.3)
[2019-11-08] MEDS: oxyCODONE /ACETAMINOPHEN 5-325MG TAB PO PRN ×3 (01:48→14:10)
[2019-11-08] MEDS ORDERED: TETANUS,DIPH,PERTUSS(ACELL) VACCINE 0.5 ML SYRINGE IM ONE (06:00)
[2019-11-08] MEDS: PRENATAL VIT27-FE FUMARATE-FOLIC ACID VIT TAB PO SCH (10:32)
[2019-11-08] MEDS: FERROUS SULFATE 325 MG TAB PO SCH (10:32)
[2019-11-08] MEDS: IBUPROFEN 800 MG TAB PO PRN ×2 (10:36→21:18)
[2019-11-08] MEDS ORDERED: MEASLES, MUMPS & RUBELLA 12,500 UNIT/0.5 ML VACCINE SUB-Q ONE (11:00)
--- NOTE | 2019-11-08 13:08 | Progress Note ---
Assessment and Plan A/P POD1 repeat csec for IUGR routine Postop care vss h/h normal d/c home pod 3 Subjective - Subjective Date of service: 11/08/19 Principal diagnosis: s/p repeat csec for IUGR Patient reports: appetite normal, voiding normally, pain well controlled, flatus, ambulating normally [facility]: doing well, in NICU Objective - Vital Signs Latest vital signs: Vital Signs Temp Pulse Resp BP BP Pulse Ox 11/08/19 10:36 20 11/08/19 09:02 97.6 F 95 H 18 134/86 98 11/08/19 08:52 20 11/08/19 07:52 20 11/08/19 05:48 97.9 F 92 H 20 126/84 99 11/07/19 23:29 98.1 F 84 20 131/90 100 11/07/19 20:10 98.1 F 86 20 136/85 98 11/07/19 15:40 98.2 F 69 18 108/61 Intake and Output 11/07/19 11/08/19 11/08/19 23:59 07:59 15:59 Intake Total 560 120 Output Total 950 Balance -390 120 Intake: Oral 560 120 Output: Urine 950 Indwelling Catheter 750 Void 200 Other: Total, Intake Amount 240 120 Total, Output Amount 200 # Voids Void 1 1 - Exam Breasts: Present: normal Cardiovascular: Present: Regular rate, Normal S1 Lungs: Present: Clear to auscultation, Normal air movement Abdomen: Present: normal appearance, soft, normal bowel sounds. Absent: distention, tenderness, guarding Vulva: both: normal Uterus: Present: normal, firm, fundal height below umbilicus. Absent: bogginess, tenderness Extremities: Present: normal Deep Tendon Reflex Grade: Normal +2 Incision: Present: normal, dry, intact
[2019-11-08] MEDS: HYDROcodone/ACETAMINOPHEN 5-325 MG TAB PO PRN (18:12)
[2019-11-09] MEDS: IBUPROFEN 800 MG TAB PO PRN (06:24)
[2019-11-09] MEDS: oxyCODONE /ACETAMINOPHEN 5-325MG TAB PO PRN (09:50)
[2019-11-09] MEDS: FERROUS SULFATE 325 MG TAB PO SCH ×2 (10:00→12:04)
[2019-11-09] MEDS: PRENATAL VIT27-FE FUMARATE-FOLIC ACID VIT TAB PO SCH ×2 (10:00→12:05)
--- NOTE | 2019-11-09 11:31 | Progress Note ---
Assessment and Plan A/P POD2 repeat csec for IUGR routine Postop care vss h/h normal d/c home pod 3 Subjective - Subjective Date of service: 11/09/19 Principal diagnosis: s/p repeat csec for IUGR Patient reports: appetite normal, voiding normally, pain well controlled, flatus, ambulating normally [employer]: doing well Objective - Vital Signs Latest vital signs: Vital Signs Temp Pulse Resp BP BP Pulse Ox 11/09/19 09:28 99.1 F 84 18 132/81 95 11/08/19 23:22 98.5 F 103 H 18 140/79 94 11/08/19 18:12 20 11/08/19 17:15 98.4 F 90 18 118/72 11/08/19 14:10 20 Intake and Output 11/08/19 11/09/19 11/09/19 23:59 07:59 15:59 Intake Total 360 120 Balance 360 120 Intake: Oral 120 Intake, Free Water 360 Other: Total, Intake Amount 120 # Voids Void 1 1 - Exam Breasts: Present: normal Cardiovascular: Present: Regular rate, Normal S1 Lungs: Present: Clear to auscultation, Normal air movement Abdomen: Present: normal appearance, soft, normal bowel sounds. Absent: distention, tenderness, guarding Uterus: Present: normal, firm, fundal height below umbilicus. Absent: bogginess, tenderness Extremities: Present: normal Deep Tendon Reflex Grade: Normal +2 Incision: Present: normal
--- NOTE | 2019-11-09 11:43 | Discharge Summary ---
Providers - Providers Date of Admission: 11/06/19 19:26 Date of discharge: 11/09/19 Attending physician: AYLA BELTRAN MD 11/06/19 20:18 Consult to Physician [CONS] Stat Comment: Consulting Provider: LIZ DASILVA Physician Instructions: consult nicu Reason For Exam: 34 WEEKS GEST 11/08/19 08:58 Consult to Case Management [CONS] Routine Services Needed at Discharge: Dispatcher [employer] Notified:: Case Management Phone number called:: [phone] Was contact made?: Yes If yes, spoke with:: Deja Time called:: 09:01 Primary care physician: AYLA BELTRAN MD Hospitalization Reason for admission: section Delivery: Procedure: section Episiotomy: none Laceration: none Incision: normal, dry Other procedures: none complications: none Discharge diagnosis: IUP at term delivered baby: male Hospital course: Patient had a repeat cesec for early delivery secondary to IUGR abn dopplers recommneded by MFM. Baby in NICU doing well. SD/c early. vss. f/u next week for incision check with staple removal at pod10 Condition at discharge: Good Disposition: DC-01 TO HOME OR SELFCARE Plan - Discharge Medications Prescriptions: Ferrous Sulfate [Feosol 325 MG tab] 325 mg PO BID #30 tablet Ibuprofen [Motrin] 600 mg PO Q8H PRN #30 tablet PRN Reason: Pain oxyCODONE /ACETAMINOPHEN [Percocet 5/325] 1 tab PO Q6HR PRN #30 tablet PRN Reason: Pain - Provider Discharge Summary Additional instructions: [] Smoking cessation referral if applicable(refer to patient education folder for contact #) [] Refer to [facility] Booklet Call your doctor immediately for: * Fever > 100.5 * Heavy vaginal bleeding ( >1 pad per hour) * Severe persistent headache * Shortness of breath * Reddened, hot, painful area to leg or breast * Drainage or odor from incision. * Keep incision clean and dry at all times and follow doctor's instructions regarding bathing/showering - Follow up plan Follow up: AYLA BELTRAN MD [Primary Care Provider] - 7 Days
[2019-11-09 15:01] VITALS: BP 136/87
== END 2019-11-09 11:30 | disposition home or self-care (01) | DRG 765 ==
LOC: 3A 13:05 → UNDOADMIN 13:05 → LD 19:26 → APU 11-07 05:08 → OB 11-07 08:59
PROVIDERS: ADMIT Obstetrics & Gynecology; ATTEND Obstetrics & Gynecology
PROC: 10D00Z1 Extraction of Products of Conception, Low, Open Approach (ICD-10-PCS; principal; 2019-11-07)
PROC: 3E0234Z Introduction of Serum, Toxoid and Vaccine into Muscle, Percutaneous Approach (ICD-10-PCS; 2019-11-08)
PROC: 3E0134Z Introduction of Serum, Toxoid and Vaccine into Subcutaneous Tissue, Percutaneous Approach (ICD-10-PCS; 2019-11-08)
DX: O60.14X0 Preterm labor third trimester with preterm delivery third trimester, not applicable or unspecified (principal); O36.5930 Maternal care for other known or suspected poor fetal growth, third trimester, not applicable or unspecified; O34.211 Maternal care for low transverse scar from previous cesarean delivery; O99.214 Obesity complicating childbirth; E66.9 Obesity, unspecified; Z3A.34 34 weeks gestation of pregnancy; Z37.0 Single live birth; Z23 Encounter for immunization
CPT/HCPCS: 36415; 85014; 85018; 85025; 86850; 86900; 86901; 88307; G0378; J0690; J1885; J2270; J2590; J2765; J3490; J7120; J7121

== ENCOUNTER 2021-04-28 12:37 | Outpatient (CLI) | payer MEDICAID ==
[2021-04-28] MEDS ORDERED: LACTATED RINGERS 500 ML IV ONE (13:32)
[2021-04-28 13:42] VITALS: BP 119/70
[2021-04-28 14:13] LABS: Bacteria,Urine 1+ /HPF (Negative); Bilirubin,Urine NEG (Negative); Blood,Urine SM (Negative); Color,Urine Amber (Yellow); Mucus,Urine 3+ /HPF
== END 2021-04-28 15:49 | disposition home or self-care (01) ==
LOC: TRG 12:37 → APU 12:38 → TRG 15:49
PROVIDERS: ATTEND Obstetrics & Gynecology
DX: O26.893 Other specified pregnancy related conditions, third trimester (principal); R25.2 Cramp and spasm; O62.9 Abnormality of forces of labor, unspecified; Z3A.30 30 weeks gestation of pregnancy
CPT/HCPCS: 59025; 81001; 96360

== ENCOUNTER 2021-05-22 14:45 | Outpatient (CLI) | payer MEDICAID ==
[2021-05-22] MEDS ORDERED: LACTATED RINGERS 1,000 ML ONE (17:13)
[2021-05-22] MEDS ORDERED: ACETAMINOPHEN 500 MG TAB ONE (17:14)
[2021-05-22] MEDS ORDERED: LACTATED RINGERS 500 ML IV ONE (17:21)
[2021-05-22] MEDS ORDERED: ACETAMINOPHEN 500 MG TAB PO ONE (17:22)
[2021-05-22 17:28] VITALS: BP 118/58
== END 2021-05-22 18:39 | disposition home or self-care (01) ==
LOC: TRG 14:45 → APU 14:47 → TRG 18:39
PROVIDERS: ATTEND Obstetrics & Gynecology
DX: O26.893 Other specified pregnancy related conditions, third trimester (principal); R51.9 Headache, unspecified; Z3A.33 33 weeks gestation of pregnancy
CPT/HCPCS: J7120

== ENCOUNTER 2021-06-24 12:50 | Inpatient (IN) | payer MEDICAID ==
--- NOTE | 2021-06-24 08:51 | History and Physical Report ---
History of Present Illness Date of examination: 06/24/21 Chief complaint: scheduled section History of present illness: Pt is a 30 year old female ELSY 07/04/21 at 38w4d who presents for scheduled section secondary to IUGR and previous x 2. She denies vaginal bleeding or leakage of fluid. She has had insufficient care at [facility] since 20 wks (4 vists at 20, 24, 31 and 38 wks) complicated by growth restriction, obesity, marginal cord insertion, suspected Toxoplasmosis exposure, two prior sections, genital herpes, growth restriction in two prior pregnancies. She is GBS positive. Pt did not complete her 1 hour diabetes screen. 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 Family/Genetic History: diabetes Social history: no significant social history - Obstetrical History Expected Date of Delivery: 07/04/21 Actual Gestation: 38 Week(s) 4 Day(s) : 3 Para: 2 Hx # Term Pregnancies: 0 Number of Pregnancies: 2 Spontaneous Abortions: 0 Induced : 0 Number of Living Children: 2 Medications and Allergies Allergies Allergy/AdvReac Type Severity Reaction Status Date / Time No Known Allergies Allergy Verified 11/06/19 20:16 Home Medications Medication Instructions Recorded Confirmed Last Taken Type Ferrous Sulfate [Feosol 325 MG tab] 325 mg PO BID #30 tablet 11/08/19 Unknown Rx Ibuprofen [Motrin] 600 mg PO Q8H PRN #30 tablet 11/08/19 Unknown Rx oxyCODONE /ACETAMINOPHEN [Percocet 1 tab PO Q6HR PRN #30 tablet 11/08/19 Unknown Rx 5/325] Active Meds: Active Medications Famotidine (Famotidine 20 Mg/2 Ml Inj) 20 mg IV ONCE ONE Stop: 06/24/21 08:50 Review of Systems All systems: negative - Physical Exam Breasts: Positive: deferred Abdomen: Positive: soft (obese, gravid ) Uterus: Positive: enlarged (gravid ) Extremities: Positive: edema (trace ) - Obstetrical FHR: auscultation normal Uterine Contraction Monitor Mode: External Uterine Tone Measurement Phase: Resting Results All other labs normal. Assessment and Plan A: IUP at 38w4d IUGR Marginal Cord Insertion Previous x 2 Genital Herpes GBS Positive P: Proceed with repeat section and other indicated procedures
[~2021-06-24 12:50] MED LIST: FAMOTIDINE 20 MG/2 ML INJ IV NR; LACTATED RINGERS 1,000 ML IV SCH; METOCLOPRAMIDE 10 MG/2 ML INJ IV NR; OXYTOCIN DRIP 30 UNITS/500 ML BAG IV SCH; ceFAZolin/Water 2 GM/20 ML 2 GM/20 ML SYRINGE IV NR
[2021-06-24] MEDS ORDERED: PROMETHAZINE 25 MG TAB PO PRN (13:00)
[2021-06-24] MEDS ORDERED: HYDROmorphone 1 MG/1 ML INJ IV PRN (13:00)
[2021-06-24] MEDS ORDERED: NalbUPHINE 10 MG/1 ML INJ IV PRN (13:00)
[2021-06-24] MEDS ORDERED: diphenhydrAMINE 50 MG/ML VIAL IV PRN (13:00)
[2021-06-24] MEDS ORDERED: PROMETHAZINE 25 MG RECT SUPP PR PRN (13:00)
[2021-06-24] MEDS ORDERED: NALOXONE 0.4 MG/1 ML INJ IV PRN ×2 (13:00→17:38)
[2021-06-24] MEDS ORDERED: ONDANSETRON 4 MG/2 ML INJ IV PRN (13:00)
[2021-06-24] MEDS ORDERED: BICITRA ORAL LIQD 30ML ONE (13:11)
[2021-06-24] MEDS ORDERED: ONDANSETRON 4 MG/2 ML INJ ONE (13:25)
[2021-06-24] MEDS ORDERED: BUPIVACAINE/PF (0.5%) 5 MG/1 ML 30 ML VIAL INFILTRATI ONE (13:25)
[2021-06-24] MEDS ORDERED: KETOROLAC 30 MG/1 ML INJ ONE (13:25)
[2021-06-24] MEDS ORDERED: dexAMETHasone 20 MG/5 ML VIAL ONE (13:25)
[2021-06-24 14:07] LABS: Basophils # (Auto) 0.1 K/mm3 (0.0-0.1); Eosinophils # (Auto) 0.1 K/mm3 (0.0-0.4); Eosinophils % (Auto) 0.7 % (0.0-4.3); Monocytes # (Auto) 0.6 K/mm3 (0.0-0.8); Monocytes % (Auto) 5.1 % (0.0-7.3)
[2021-06-24 15:25] LABS: Hematocrit 36.3 % (30.3-42.9); Hemoglobin 13.2 gm/dl (10.1-14.3); Mean Corpuscular Volume 93 fl (79-97); Red Blood Count 3.92 M/mm3 (3.65-5.03)
[2021-06-24 15:31] LABS: Lymphocytes % (Auto) 21.5 % (13.4-35.0); Mean Corpuscular HGB Conc 36 % (30-34); Platelet Count 297 K/mm3 (140-440); Red Cell Distribution Width 13.8 % (13.2-15.2)
[2021-06-24 15:32] LABS: Basophils % (Auto) 0.8 % (0.0-1.8)
[2021-06-24 15:33] LABS: Lymphocytes # (Auto) 0.1 K/mm3 (1.2-5.4)
[2021-06-24] MEDS ORDERED: ceFAZolin/STERILE WATER 2 GM/20 ML SYRINGE IV ONE (16:00)
[2021-06-24] MEDS ORDERED: PHENYLEPHRINE/NS 1,000 MCG/10 ML SYRINGE (OR USE) IV ONE ×3 (16:04→16:56)
[2021-06-24] MEDS ORDERED: WATER FOR IRRIG STERILE 1,500 ML BOTTLE IR ONE (16:22)
[2021-06-24] MEDS ORDERED: SODIUM CHLORIDE 0.9% IRR 1,500 ML BOTTLE IR ONE (16:22)
--- NOTE | 2021-06-24 16:27 | Anesthesia Consultation ---
Anesthesia Consult and Med Hx Date of service: 06/24/21 - Airway Anesthetic Teeth Evaluation: Good ROM Head & Neck: Adequate Mental/Hyoid Distance: Adequate Mallampati Class: Class III Intubation Access Assessment: Possibly Difficult - Pulmonary Exam CTA: Yes - Cardiac Exam Cardiac Exam: RRR - Pre-Operative Health Status ASA Pre-Surgery Classification: ASA2 Proposed Anesthetic Plan: Spinal Nerve Block: TAP - Pulmonary Hx Smoking: No Hx Asthma: No Hx Respiratory Symptoms: No SOB: No COPD: No Hx Pneumonia: No Hx Sleep Apnea: No - Cardiovascular System Hx Hypertension: No Hx Coronary Artery Disease: No Hx Heart Attack/AMI: No Hx Angina: No Hx Percutaneous Transluminal Coronary Angioplasty (PTCA): No Hx Cardia Arrhythmia: No Hx Pacemaker: No Hx Internal Defibrillator: No Hx Valvular Heart Disease: No Hx Heart Murmur: No Hx Peripheral Vascular Disease: No - Central Nervous System Hx Neuromuscular Disorder: No Hx Seizures: No CVA: No Hx Back Pain: No Hx Psychiatric Problems: No - Gastrointestinal Hx Ulcer: No Hx Gastroesophageal Reflux Disease: No - Endocrine Hx Renal Disease: No Hx End Stage Renal Disease: No Hx Cirrhosis: No Hx Liver Disease: No Hx Insulin Dependent Diabetes: No Hx Non-Insulin Dependent Diabetes: No Hx Thyroid Disease: No Hx Hypothyroidism: No Hx Hyperthyroidism: No - Hematic Hx Anemia: No Hx Sickle Cell Disease: No - Other Systems Hx Alcohol Use: No Hx Substance Use: No Hx Cancer: No Hx Obesity: Yes
--- NOTE | 2021-06-24 16:27 | Anesthesia Day of Surgery ---
Anesthesia Day of Surgery - Day of Surgery Patient Examined: Yes Patient H&P Reviewed: Yes Patient is NPO: Yes Beta Blockers: No Cardiac Clearance: No Pulmonary Clearance: No Franc's Test: N/A
--- NOTE | 2021-06-24 16:29 | Progress Note ---
Spinal Anesthesia Block - Spinal Anesthesia Block Start Time: 15:50 Stop Time: 16:00 Performed by:: JEFF LOVE ([facility]) Procedure: Spinal anesthesia block is being performed for [C/S]. H&P, labs have been reviewed. Patient's questions and concerns have been answered. Informed consent has been performed. Timeout has was performed. Patient in sitting position on side of bed. Sterile prep and drape was performed. 3 mL 1% lid ocaine skin wheal at L [3]-L [4]. Needle introducer advanced. 25-gauge spinal needle advanced, [+] CSF [-] blood. [Marcaine 10mg and Precedex 5mcg] Spinal dose was given. All needles removed. Patient tolerated procedure well.
[2021-06-24] MEDS ORDERED: LACTATED RINGERS 2,000 ML ONE (17:18)
--- NOTE | 2021-06-24 17:32 | Procedure Note ---
OB Delivery Note - Delivery Date of Delivery: 06/24/21 Surgeon: IMELDA JOHNSON Estimated blood loss: other (QBL pending) - Section Preop diagnosis: repeat , other (IUGR ) Postop diagnosis: same section procedure: section, repeat low transverse Disposition: PACU Complications: none Narrative: Please see operative report - A at 1 minute: 8 at 5 minutes: 9 Gender: Female (2650g (5lb 13oz) @ 1640 pm)
[2021-06-24] MEDS ORDERED: MAGNESIUM HYDROXIDE (MOM) ORAL LIQD UDC PO PRN (17:38)
[2021-06-24] MEDS ORDERED: LANOLIN/ZINC/DIMETHICONE (LANSINOH) 7 GM TP PRN (17:38)
[2021-06-24] MEDS ORDERED: SIMETHICONE 80 MG CHEW TAB PO PRN (17:38)
[2021-06-24] MEDS ORDERED: WITCH HAZEL/ GLYCERIN PAD TP PRN (17:38)
[2021-06-24] MEDS ORDERED: ACETAMINOPHEN 325 MG TAB PO PRN (17:38)
--- NOTE | 2021-06-24 17:38 | Operative Report ---
Operative Report Operative Report: Date of procedure: June 24, 2021 Preoperative diagnosis: 1) IUP at 38w4d 2) IUGR 3) Previous x 2 4) Obesity 5) Keloid Skin Postoperative diagnosis: Same Procedure: Repeat low transverse section, Lysis of Adhesions Surgeon: Wandy Garcia M.D. Anesthesia: Regional Findings: 1) Viable female , Apgars 8 and 9, weight 2650 g, (5 lb 13 oz) in cephalic presentation 2) Normal-appearing uterus ovaries and tubes Estimated blood loss: QBL pending IV fluids: 2000 mL Urine output: 150 mL, clear at the end of the procedure Drains: [place] to gravity Specimens: None Complications:None. Counts correct x 3 Disposition: Stable to PACU Indication for procedure: Pt is a 30 year old at 38w4d with two prior sections and IUGR presents for scheduled section. Operation in detail: After the risks, benefits, alternatives and complications were explained to the patient she gave informed consent for the procedure. She was subsequently taken to the operating room where regional anesthesia was noted to be adequate. She was placed in the dorsal supine position with leftward tilt and prepped and draped in a normal sterile fashion. heart tones were noted prior to incision. A timeout was performed. A Pfannenstiel skin incision was made with the knife and carried down to the layer of the fascia with the Bovie. The fascia was incised in the midline and the fascial incision was extended bilaterally with the Bovie. The fascial incision was then stretched. The rectus muscles were then in the midline and partially transected for adequate visualization. The peritoneum was then entered bluntly. The peritoneal incision was extended with good v isualization of the bladder. The peritoneal incision was then stretched. Omental adhesions to the lower uterine segment were lysed with Bovie cautery an Timothy retractor was placed. The bladder blade was then placed. The vesicouterine peritoneum was grasped with smooth pick ups and incised with Metzenbaum scissors. A bladder flap was then created digitally and the bladder blade was replaced. A transverse incision was made in the lower uterine segment with a knife and extended bilaterally with the bandage scissors. Amniotomy was performed with egress of clear fluid. head delivered with ease, followed by shoulders and body. bulb suctioned at delivery. Cord clamped and cut. handed to NICU staff in attendance. The placenta was then delivered manually. The uterus was then exteriorized and cleared of all clots and debris. The hysterotomy was then reapproximated with 0 Monocryl in a running locked fashion. A second layer of the same suture was used in imbricating fashion. The hysterotomy was inspected and hemostasis was noted. The gutters were irrigated and cleared of all clots and debris. The hysterotomy was again inspected and noted to be hemostatic. Surgicel was placed over the hysterotomy. Intercede was placed over the anterior surface of the uterus. The Timothy retractor was removed. The uterus was placed back into the peritoneal cavity. The peritoneum was reapproximated with 0 Monocryl in a running fashion incorporating the rectus muscles. Surgicel was placed over the rectus muscles. The fascia was reapproximated with 0 Vicryl in a running fashion. The skin was reapproximated with 3-0 Monocryl in a subcuticular fashion. The incision was then covered with steri strips and a pressure dressing. The procedure was then ended. The patient tolerated the procedure well and was taken to the PACU in stable condition. All instrument, lap, and needle counts were correct 3.
[2021-06-24] MEDS ORDERED: OXYTOCIN DRIP 30 UNITS/500 ML BAG IV SCH (18:00)
[2021-06-24] MEDS: ceFAZolin/NS 1 GM/50 ML 1 GM/50 ML BAG IV SCH (22:54)
[2021-06-24] MEDS: KETOROLAC 30 MG/1 ML INJ IV SCH (22:54)
[2021-06-25] MEDS: oxyCODONE /ACETAMINOPHEN 5-325MG TAB PO PRN ×3 (04:06→17:34)
[2021-06-25 05:10] LABS: Hematocrit 38.9 % (30.3-42.9); Hemoglobin 13.1 gm/dl (10.1-14.3)
[2021-06-25] MEDS: ceFAZolin/NS 1 GM/50 ML 1 GM/50 ML BAG IV SCH (05:48)
[2021-06-25] MEDS: IBUPROFEN 600 MG TAB PO PRN (11:36)
--- NOTE | 2021-06-25 13:20 | Progress Note ---
Assessment and Plan - Patient Problems (1) Previous section Current Visit: No Status: Acute Plan to address problem: Patient doing well Routine postoperative care Subjective - Subjective Date of service: 06/25/21 Interval history: Patient is postop day 1 status post a repeat delivery. She is tolerating her diet without complication. The patient is voiding and ambulating in the room without difficulty. Her pain is well controlled. Patient reports: appetite normal, voiding normally, pain well controlled Objective - Vital Signs Latest vital signs: Vital Signs Temp Pulse Resp BP BP Pulse Ox Pulse Ox 06/25/21 12:17 98.0 F 89 19 130/68 96 06/25/21 08:00 99 06/25/21 07:58 97.9 F 75 18 135/88 98 06/25/21 04:06 19 06/25/21 04:00 98.1 F 79 20 134/78 96 06/25/21 01:54 97.4 F L 76 18 121/78 99 06/24/21 22:54 18 06/24/21 20:30 97.6 F 65 20 116/81 99 99 06/24/21 19:35 18 06/24/21 19:25 97.6 F 70 13 102/73 122/72 100 06/24/21 18:46 97.6 F 69 13 95/48 97 06/24/21 18:26 78 15 146/69 97 06/24/21 18:21 78 13 174/81 97 06/24/21 18:18 84 12 162/86 88 06/24/21 18:11 72 12 177/70 06/24/21 18:07 75 10 L 06/24/21 18:02 88 18 148/100 91 06/24/21 17:45 91 H 15 113/57 100 06/24/21 17:40 75 13 99/40 100 06/24/21 17:38 76 13 102/47 100 06/24/21 15:37 101 H 100 06/24/21 15:32 93 H 100 06/24/21 15:27 89 99 06/24/21 15:22 91 H 86 06/24/21 15:20 62 90 06/24/21 15:17 80 98 06/24/21 15:15 99 H 80 L 06/24/21 15:10 97 H 96 06/24/21 15:08 53 L 06/24/21 15:05 111 H 88 06/24/21 15:03 84 85 06/24/21 15:00 98.6 F 06/24/21 14:59 101 H 98 06/24/21 14:54 92 H 100 06/24/21 14:49 90 98 06/24/21 14:45 98.6 F 06/24/21 14:44 76 99 06/24/21 14:06 89 100 06/24/21 14:01 88 100 06/24/21 13:56 88 99 06/24/21 13:51 108 H 99 06/24/21 13:46 87 99 06/24/21 13:41 89 100 06/24/21 13:36 87 100 06/24/21 13:31 94 H 99 06/24/21 13:28 95 H 130/82 06/24/21 13:26 104 H 100 Intake and Output 06/24/21 06/25/21 06/25/21 22:59 06:59 14:59 Intake Total 2000 530 Output Total 175 1800 Balance 1825 -1270 Intake: IV 2000 50 ANCEF/NS 1 GM/50 ML 1 gm 50 In 50 ml @ 100 mls/hr IV Q8H [facility] Rx#:[id number] Intake, Free Water 480 Output: Urine 175 1800 Indwelling Catheter 1600 Uretheral ([place]) 25 Void 200 Other: Total, Output Amount 1800 - Labs Labs: Abnormal lab results 06/24/21 Range/Units Unknown WBC 12.7 H (4.5-11.0) K/mm3 MCH 34 H (28-32) pg MCHC 36 H (30-34) % Lymph # (Auto) 0.1 L (1.2-5.4) K/mm3 Seg Neutrophils % 71.9 H (40.0-70.0) % Seg Neutrophils # 9.2 H (1.8-7.7) K/mm3
[2021-06-25] MEDS: KETOROLAC 30 MG/1 ML INJ IV SCH (17:36)
[2021-06-25] MEDS ORDERED: MEASLES, MUMPS & RUBELLA 12,500 UNIT/0.5 ML VACCINE SUB-Q ONE (17:40)
[2021-06-25] MEDS ORDERED: TETANUS,DIPH,PERTUSS(ACELL) VACCINE 0.5 ML SYRINGE IM ONE (18:30)
[2021-06-26] MEDS: oxyCODONE /ACETAMINOPHEN 5-325MG TAB PO PRN ×2 (01:12→11:00)
[2021-06-26] MEDS: IBUPROFEN 600 MG TAB PO PRN ×2 (06:49→12:06)
[2021-06-26 09:49] VITALS: BP 117/60
--- NOTE | 2021-06-26 11:32 | Progress Note ---
Assessment and Plan - Patient Problems (1) Previous section Current Visit: No Status: Acute Plan to address problem: Patient doing well Discharge home Subjective - Subjective Date of service: 06/26/21 Interval history: Patient reports feeling well today. Pain is better controlled. She is tolerating regular diet without complication. Patient reports: appetite normal, voiding normally, pain well controlled [place]: doing well Objective - Vital Signs Latest vital signs: Vital Signs Temp Pulse Resp BP Pulse Ox Pulse Ox 06/26/21 07:56 97.6 F 88 16 117/60 97 06/26/21 07:54 98 06/26/21 06:49 12 06/26/21 01:22 98.0 F 85 20 128/83 100 06/26/21 01:12 12 06/25/21 20:25 98 06/25/21 15:41 98.0 F 94 H 19 113/75 100 06/25/21 12:17 98.0 F 89 19 130/68 96 Intake and Output 06/25/21 06/26/21 06/26/21 22:59 06:59 14:59 Intake Total 240 Output Total 400 Balance -160 Intake: Intake, Free Water 240 Output: Urine 400 Void 400 Other: Total, Output Amount 300 # Voids Void 1 - Exam Abdomen: Present: normal appearance Uterus: Present: normal, firm
--- NOTE | 2021-06-26 11:33 | Discharge Summary ---
Providers - Providers Date of Admission: 06/24/21 12:50 Date of discharge: 06/26/21 Attending physician: IMELDA JOHNSON 06/24/21 17:38 Consult to [employer] [CONS] Routine Reason For Exam: Primary care physician: LEON MARTI Hospitalization Reason for admission: section Delivery: Procedure: section, repeat low transverse Discharge diagnosis: IUP at term delivered Hospital course: The patient was admitted for repeat delivery for intrauterine growth restriction. Please see operative note for details of surgery. Her postoperative course was uneventful. Condition at discharge: Good Disposition: 01 HOME / SELF CARE / HOMELESS - Discharge Diagnoses (1) Previous section Status: Acute Plan - Discharge Medications Prescriptions: Ibuprofen [Motrin] 800 mg PO Q8HR PRN #60 tablet PRN Reason: Pain , Severe (7-10) oxyCODONE /ACETAMINOPHEN [Percocet 5/325] 1 tab PO Q6HR PRN #30 tablet PRN Reason: Pain - Provider Discharge Summary Activity: no sex for 6 weeks, no heavy lifting 4 weeks, no strenuous exercise Diet: routine Instructions: routine Additional instructions: [] Smoking cessation referral if applicable(refer to patient education folder for contact #) [] Refer to [facility] Booklet Call your doctor immediately for: * Fever > 100.5 * Heavy vaginal bleeding ( >1 pad per hour) * Severe persistent headache * Shortness of breath * Reddened, hot, painful area to leg or breast * Drainage or odor from incision. * Keep incision clean and dry at all times and follow doctor's instructions regarding bathing/showering Schedule postoperative visit in 2 weeks - Follow up plan
== END 2021-06-26 16:10 | disposition home or self-care (01) | DRG 765 ==
LOC: APU 12:50 → OB 20:48 → EDSTATUS 06-30 07:30
PROVIDERS: ADMIT Obstetrics & Gynecology; ATTEND Obstetrics & Gynecology
PROC: 10D00Z1 Extraction of Products of Conception, Low, Open Approach (ICD-10-PCS; principal; 2021-06-24)
PROC: 3E0234Z Introduction of Serum, Toxoid and Vaccine into Muscle, Percutaneous Approach (ICD-10-PCS; 2021-06-25)
DX: O36.5930 Maternal care for other known or suspected poor fetal growth, third trimester, not applicable or unspecified (principal); O98.32 Other infections with a predominantly sexual mode of transmission complicating childbirth; O34.211 Maternal care for low transverse scar from previous cesarean delivery; Z37.0 Single live birth; Z3A.38 38 weeks gestation of pregnancy; Z20.822 Contact with and (suspected) exposure to COVID-19; Z23 Encounter for immunization; O99.824 Streptococcus B carrier state complicating childbirth; O99.214 Obesity complicating childbirth; A60.00 Herpesviral infection of urogenital system, unspecified; L91.0 Hypertrophic scar; O99.72 Diseases of the skin and subcutaneous tissue complicating childbirth
CPT/HCPCS: 36415; 59025; 85014; 85018; 85025; 86850; 86900; 86901; 96360; 96361; 96374; G0378; J0690; J1100; J1170; J1885; J2370; J2405; J2590; J2765; J3490; J7120; U0003